=== PATIENT | male | born 1960 | race Caucasian/White ===

== ENCOUNTER 2017-05-16 18:48 | Emergency (ER) | payer BC, OTHER ==
[~2017-05-16] VITALS: Ht 167.6 cm; Wt 74.0 kg
[2017-05-16 18:56] VITALS: Ht 167.6 cm; Wt 74.0 kg
[2017-05-16] MEDS ORDERED: CIPR7.5D4 RIGHT EAR (19:04)
[2017-05-16 19:08] VITALS: BP 138/82; PULSE 82; RESP 17; TEMP 98
--- NOTE | 2017-05-16 20:38 | ERD ---
ER Documentation Chief Complaint Chief Complaint bilat ear pain today, worse on right. tx'd for lt ear infect 1 wk ago HPI 57 year old male comes in with right external ear pain starting today. Patient describes is as sharp, localized to the external ear. No fever or chills. patient wears a hearing aid, was treated with ear drops for left ear pain a year ago. ROS All systems reviewed and are negative except as per history of present illness. Medications Home Meds Active Scripts Ciprofloxacin Hcl/Dexameth (Ciprodex Otic Suspension) 7.5 Ml Drops.susp, 4 DROP RIGHT EAR BID for 7 Days, EA Prov:YUNG NUÑEZ PA-C 05/16/17 Allergies Allergies: Coded Allergies: No Known Allergy (Unverified , 05/16/17) PMhx/Soc Hx Cardiac Disorders: Yes (htn) Hx Alcohol Use: No Hx Substance Use: No Hx Tobacco Use: No Smoking Status: Never smoker Physical Exam Vitals Vital Signs Date Time Temp Pulse Resp B/P Pulse Ox O2 Delivery O2 Flow Rate FiO2 05/16/17 19:08 98.0 82 17 138/82 100 Room Air 05/16/17 18:56 98.3 75 18 158/94 97 Physical Exam General: Well-developed, well-nourished. The patient appears in no acute distress. HEENT: Head is normocephalic, atraumatic. No scleral icterus. Right external ear is tender to palpation, as well as painful with pulling on the tragus. There is no otorrhea or discharge, TM is normal, there is no erythema to the tympanic membrane. Ears unremarkable, oropharynx is clear. Neck: Supple. Nontender. Lungs: Clear to auscultation. Normal air movement. Heart: Regular rate and rhythm. S1 and S2 are normal. No murmurs, gallops, or rubs. Abdomen: Nondistended. Extremities: No clubbing or cyanosis. Moving extremities x 4. No weakness. Neurologic: Alert and oriented 3. No focal deficits. Normal speech and gait. Skin: Normal turgor. No rash or lesions. Procedures/MDM 57-year-old male presents with right-sided ear pain, he has tenderness, and states that it feels similar to an ear infection that he obtain on the left side. Patient will be treated with Ciprodex, there are no signs of otitis media , tympanic membrane otitis, deep space infection. Departure Diagnosis: Primary Impression: Otitis externa of right ear Condition: Good Patient Instructions: External Ear Infection (Adult) YUNG NUÑEZ PA-C May 16, 2017 20:38
== END 2017-05-16 19:17 | disposition home or self-care (01) ==
LOC: FTE 18:48
DX: H60.91 Unspecified otitis externa, right ear (principal); I10 Essential (primary) hypertension
CPT/HCPCS: 99283

== ENCOUNTER 2017-07-01 20:01 | Emergency (ER) | payer BC ==
[~2017-07-01] VITALS: Ht 167.6 cm; Wt 80.0 kg
[~2017-07-01 20:01] MED LIST: CIPR7.5D4 RIGHT EAR
[2017-07-01 20:08] VITALS: Ht 167.6 cm; Wt 80.0 kg
[2017-07-01] MEDS ORDERED: AZIT250T94 PO (20:29)
[2017-07-01] MEDS ORDERED: CIPR7.5D4 LEFT EAR (20:29)
--- NOTE | 2017-07-01 20:34 | ERD ---
ER Documentation Chief Complaint Chief Complaint Sore throat, left ear pain x 1 week HPI This 57-year-old male presents with left ear pain for last week. He also has some cough congestion. He has history of recurrent otitis externa. He wears hearing aids. He denies any fevers, discharge, chest pain, shortness breath, vomiting. ROS All systems reviewed and are negative except as per history of present illness. Medications Home Meds Active Scripts Azithromycin* (Zithromax*) 250 Mg Tablet, 250 MG PO .MichaelPACK DIRECTED, #6 TAB TAKE 500 MG (2 TABS) THE FIRST DAY THEN 250 MG (1 TAB) DAYS 2-5 Prov:CHRISTINA COREY MD 07/01/17 Ciprofloxacin Hcl/Dexameth (Ciprodex Otic Suspension) 7.5 Ml Drops.susp, 4 DROP LEFT EAR BID for 7 Days, EA Prov:CHRISTINA COREY MD 07/01/17 Ciprofloxacin Hcl/Dexameth (Ciprodex Otic Suspension) 7.5 Ml Drops.susp, 4 DROP RIGHT EAR BID for 7 Days, EA Prov:YUNG NUÑEZ PA-C 05/16/17 Allergies Allergies: Coded Allergies: No Known Allergy (Unverified , 05/16/17) PMhx/Soc History of Surgery: No Anesthesia Reaction: No Hx Neurological Disorder: No Hx Respiratory Disorders: No Hx Cardiac Disorders: Yes (htn) Hx Psychiatric Problems: No Hx Miscellaneous Medical Probl: No Hx Alcohol Use: No Hx Substance Use: No Hx Tobacco Use: No Smoking Status: Never smoker Physical Exam Vitals Vital Signs Date Time Temp Pulse Resp B/P Pulse Ox O2 Delivery O2 Flow Rate FiO2 07/01/17 20:08 99.1 82 20 169/76 99 Physical Exam Const: [], [id number]. Head: Atraumatic Eyes: Normal Conjunctiva ENT: Normal External Ears, Nose and Mouth. Right TM appears normal. Left TM occluded by cerumen. There is some irritation in the canal. Neck: Full range of motion..~ No meningismus. Resp: Clear to auscultation bilaterally Cardio: Regular rate and rhythm, no murmurs Abd: Soft, non tender, non distended. Normal bowel sounds Skin: No petechiae or rashes Back: No midline or flank tenderness Ext: No cyanosis, or edema Neur: Awake and alert Psych: Normal Mood and Affect Procedures/MDM Ear lavage was performed on the left. TM on the left shows no perforation there is there is some redness of the TM and some slight exudate on the TM and irritation of the canal. There is no mastoid tenderness to suggest mastoiditis or cellulitis. Patient has signs of otitis externa as well as possibly otitis media. He will treated empirically with Zithromax, Cipro eardrops, ibuprofen and ENT follow-up. The patient was stable with no new complaints during the ER course. Clinically, there is no current evidence to suggest meningitis, sepsis, acute abdomen, pneumonia, acute coronary syndrome, pulmonary embolism, or any other emergent condition appearing to require further evaluation or hospitalization. The patient should certainly return for any new or worsening symptoms per the aftercare instructions. They should otherwise follow-up with her primary care doctor for reevaluation this week. Departure Diagnosis: Primary Impression: Otitis media Otitis media type: suppurative Chronicity: acute Laterality: left Recurrence: recurrent Spontaneous tympanic membrane rupture: without spontaneous rupture Qualified Code: H66.005 - Recurrent acute suppurative otitis media without spontaneous rupture of left tympanic membrane Additional Impression: Otitis externa of right ear Otitis externa type: unspecified type Chronicity: acute Qualified Code: H60.501 - Acute otitis externa of right ear, unspecified type Condition: Stable Patient Instructions: Otitis Media, Abx Tx (Adult), External Ear Infection ( Adult) Referrals: BRIDGETTE GRANT MD, STEPHEN H MD Additional Instructions: We will treat for inner and outer infection. Recheck with ENT specialist for further evaluation. Recheck otherwise for new or worsening symptoms. CHRISTINA COREY MD Jul 01, 2017 20:34
== END 2017-07-01 20:48 | disposition home or self-care (01) ==
LOC: E/R 20:01 → FTE 20:48
DX: H66.005 Acute suppurative otitis media without spontaneous rupture of ear drum, recurrent, left ear (principal); H60.502 Unspecified acute noninfective otitis externa, left ear; H61.22 Impacted cerumen, left ear; I10 Essential (primary) hypertension

== ENCOUNTER 2017-12-30 23:51 | Emergency (ER) | END 2017-12-31 01:01 | disposition home or self-care (01) ==